=== PATIENT | female | born 1960 | race Caucasian/White ===

== ENCOUNTER 2020-05-16 16:48 | Emergency (ER) | payer SELFPAY ==
[~2020-05-16] VITALS: Ht 177.8 cm; Wt 86.2 kg
[2020-05-16] MEDS ORDERED: GEODON20 MG (17:11)
[2020-05-16] MEDS ORDERED: TRAZODONE HCL50 MG PO (17:11)
[2020-05-16] MEDS ORDERED: CLONAZEPAM2 MG (17:11)
[2020-05-16] MEDS ORDERED: TETANUS/DIPHTHERIA TOX ADULT 0.5 ML SYR IM ONE (17:15)
--- OUTSIDE RECORDS SUMMARY | 2020-05-16 17:52 | XMS REPORT | Clinical Summary ---
Author Author [facility] Organization [facility] Address Unknown Phone Unavailable Care Team Providers Care Administrative Analyst Name Role Phone Asked, No Pcp PCP Unavailable Allergies Comments Active Allergy Reactions Severity Noted Date Face Ava Swelling 04/10/2018 Medications End Date Status Medication Sig Dispensed Refills Start Date Active buPROPion XL (WELLBUTRIN Take 300 mg 0 XL) 300 MG 24 hr tablet by mouth every morning. Active traZODone (DESYREL) 100 Take 200 mg 0 MG tablet by mouth nightly. Active ziprasidone (GEODON) 80 Take 160 mg 0 MG capsule by mouth nightly. Active ibuprofen (ADVIL,MOTRIN) Take 200 mg 0 200 MG tablet by mouth every 6 (six) hours as needed for mild pain. Active Problems Problem Noted Date Epigastric pain 04/10/2018 Social History Date Tobacco Use Types Packs/Day Years Used Current Every Day Smoker Cigarettes 0.5 25 Smokeless Tobacco: Never Used Tobacco Cessation: Ready to Quit: No; Co unseling Given: No Drinks/Week oz/Week Comments Alcohol Use occasionally Yes Sex Assigned at Date Recorded Not on file Industry Job Start Date Occupation Not on file Not on file Not on file Travel End Travel History Travel Start No recent travel history available. Last Filed Vital Signs Not on file Plan of Treatment Health Maintenance Due Date Last Done Comments CERVICAL CANCER SCREENING 01/01/1981 BREAST CANCER SCREENING 01/01/2010 COLONOSCOPY SCREENING 01/01/2010 SHINGLES VACCINES (#1) 01/01/2010 INFLUENZA VACCINE 06/01/2020 Implants Device Identifier Shelf Expiration Date Model / Serial / L ot Implanted Type Area Manufactur er [id number] / / Faith Zelaya [id number] Surgical N/A: N/A GELACIO ROVASIV 15-16.5-18mm Cre - [id number] Implants; E Implanted: 04/11/2018 at [facility] Expanders; HOSPITAL (Quantity not on file) Extenders; Surgical Wires Results Not on fileafter 05/16/2019 Advance Directives For more information, please contact: [phone] 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
--- OUTSIDE RECORDS SUMMARY | 2020-05-16 17:52 | XMS REPORT | Continuity of Care Document ---
Author Author [facility] Organization [facility] Address [address] [place] [address] Phone Unavailable Care Team Providers Care Manager Quality Improvement Name Role Phone Asked, Pcp No PCP Unavailable Payers Payer Name Policy Type Policy Number Effective Date Expiration Date S ource Problems Condition Name Condition Details Condition Category Status Onset Date Resolution Date Last Treatment Date Treating Clinician Comments Source Epigastric pain Epigastric pain Disease Active 2018-04-10 00:00:[address] Allergies, Adverse Reactions, Alerts Allergy Name Allergy Type Status Severity Reaction(s) Onset Date Inacti ve Date Treating Clinician Comments Source lithium DA Active U 2018-07-18 00:00:00 [facility] [place] Propensity to adverse reactions to drug Active Swelling 2018-04-10 00:00:00 [facility] t lithium DA Active U 2011-09-02 00:00:00 [facility] Social History Social Habit Start Date Stop Date Quantity Comments Source History of tobacco use Cigarette Smoker [facility] Sex Assigned At [facility] m[facility] [place] Cigarettes smoked current (pack per day) - Reported 00:00:00 2018-04-12 00:00:[address] Cigarette pack-years 2018-04-12 00:00:00 2018-04-12 00:00:[address] Alcohol intake 2018-04-12 00:00:00 2018-04-12 00:00:00 Current drinker of alcohol (finding) [facility] Alcohol Comment 2018-04-10 00:00:00 2018-04-10 00:00:[address] Smoking Status Start Date Stop Date Source Current every day smoker 2018-04-12 00:00:00 [facility] [place] Medications Ordered Medication Name Filled Medication Name Start Date Stop Da te Current Medication? Ordering Clinician Indication Dosage Frequency Signature (SIG) Comments Components Source buPROPion XL (WELLBUTRIN XL) 300 MG 24 hr tablet 2018-04-11 14:58:09 Yes 300mg QD Take 300 mg by mouth every morning. [facility] traZODone (DESYREL) 100 MG tablet 2018-04-11 14:58:09 Yes 200mg QD Take 200 mg by mouth nightly. [facility]o ziprasidone (GEODON) 80 MG capsule 2018-04-11 14:58:09 Yes 160mg QD Take 160 mg by mouth nightly. [facility] ibuprofen (ADVIL,MOTRIN) 200 MG tablet 2018-04-11 14:58:09 Yes 200mg Q6H Take 200 mg by mouth every 6 (six) hours as needed for mild pain . [facility] Procedures This patient has no known procedures. Plan of Care Planned Activity Planned Date Details Comments Source Future Scheduled Test 2020-06-01 00:00:00 INFLUENZA VACCINE [code = INFLUENZA VACCINE] [facility] Scheduled Test 2010-01-01 00:00:00 BREAST CANCER SCRE ENING [code = BREAST CANCER SCREENING] [facility] Scheduled Test 2010-01-01 00:00:00 COLONOSCOPY SCREEN ING [code = COLONOSCOPY SCREENING] [facility] Scheduled Test 2010-01-01 00:00:00 SHINGLES VACCINES (#1) [code = SHINGLES VACCINES (#1)] [facility] Scheduled Test 1981-01-01 00:00:00 Screening for jack gnant neoplasm of cervix (procedure) [code = 002500090] [facility] t Results This patient has no known results.
--- NOTE | 2020-05-16 18:01 | Diagnostic Imaging Report ---
X-ray 3 views of the index finger. HISTORY: Finger pain after recent fall. COMPARISON: None available. FINDINGS: Bones/joints: No acute fracture or dislocation. Soft tissues: No focal soft tissue abnormality. IMPRESSION: No osseous or soft tissue abnormality. Signed by: Austen Smith MD on 05/16/2020 5:57 PM
--- NOTE | 2020-05-16 18:02 | Diagnostic Imaging Report ---
X-ray 3 views of the wrist. HISTORY: Wrist pain after recent fall. COMPARISON: None available. FINDINGS: Bones/joints: No acute fracture or dislocation. Soft tissues: No focal soft tissue abnormality. IMPRESSION: No osseous or soft tissue abnormality. Signed by: Austen Smith MD on 05/16/2020 5:59 PM
--- NOTE | 2020-05-16 18:04 | Diagnostic Imaging Report ---
X-ray 3 views of the foot. HISTORY: Foot pain after recent fall. COMPARISON: None available. FINDINGS: Bones/joints: No acute fracture or dislocation. Soft tissues: No focal soft tissue abnormality. IMPRESSION: No acute radiographic abnormality. Signed by: Austen Smith MD on 05/16/2020 6:00 PM
--- NOTE | 2020-05-16 18:05 | Emergency Department Note ---
History of Present Illnes History of Present Illness Chief Complaint: General Medicine Complaints History of Present Illness This is a 60 year old female S/P FALL YESTERDAY. TRIP OVER THRESHOLD AND FALL COMING OUT OF [employer]. PT HIT FACE WITH ABRASION ABOVE LIP. RT FOREARM LIGHT BROWN BRUISING. +RADIAL PULSE. TOP OF RT FOOT SWELLING WITH LIGHT BROWN BRUISING. LAC INSIDE UPPER LIP. LEFT INDEX FINGER BRUISING NOTED WELL. Historian: Patient Arrival Mode: Car Equip Tech Required: No Onset (how long ago): day(s) (YESTERDAY) Location: RT FOOT, LEFT INDEX FINGER, RT WRIST, FACE/LIP Quality: PAIN Radiation: Reports non-radiation Severity: moderate Onset quality: sudden Timing of current episode: constant Progression: unchanged Chronicity: new Context: Reports trauma/injury (FALL YESTERDAY, NO LOC); Denies recent illness Relieving factors: none Exacerbating factors: none Associated symptoms: Reports denies other symptoms Treatments prior to arrival: none (ELIZABETH HERRON MD) Past Medical/Family History Physician Review I have reviewed the patient's past medical and family history. Any updates have been documented here. (ELIZABETH HERRON MD) Past Medical History Recent Fever: No Clinical Suspicion of Infectio: No New/Unexplained Change in Ment: No Past Medical History: Cancer, Anxiety, Depression, Other Mental Illness Other Medical History: BIPOLAR WITH PARANOID FEATURES EX SMOKER Past Surgical History: Lumpectomy, Bariatric Surgery Other Surgery: TRAM FLAP BREAST GASTRIC BYPASS 1989 CARPAL TUNNEL RT HAND (ELIZABETH HERRON MD) Social History Physically hurt or threatened: No (ELIZABETH HERRON MD) Review of Systems Review of Systems Constitutional: Reports no symptoms EENTM: Reports as per HPI Cardiovascular: Reports no symptoms Respiratory: Reports no symptoms Gastrointestinal: Reports no symptoms Genitourinary: Reports no symptoms Musculoskeletal: Reports as per HPI Integumentary: Reports no symptoms Neurological: Reports no symptoms Psychological: Reports no symptoms Endocrine: Reports no symptoms Hematological/Lymphatic: Reports no symptoms (ELIZABETH HERRON MD) Physical Exam Related Data Allergies: Coded Allergies: lithium (Verified Allergy, Unknown, 05/16/20) Triage Vital Signs Vital Signs Date Time Temp Pulse Resp B/P (MAP) Pulse Ox O2 Delivery O2 Flow Rate FiO2 05/16/20 17:00 98.0 88 16 131/99 98 Room Air Vital signs reviewed: Yes (ELIZABETH HERRON MD) Physical Exam CONSTITUTIONAL Constitutional: Present well-developed, Present well-nourished HENT HENT: Present normocephalic, Present nose normal, Present other (ABRASIONS TO UPPER LIP EXTERNALLY, SUPERFICIAL LACERATION TO INNER UPPER LIP, NO INVOLVEMENT OF CHARISSA BORDER (ALL INTERNAL)); Absent nasal discharge, Absent nasal congestion HENT L/R: Present left ext ear normal, Present right ext ear normal EYES Eyes: Reports PERRL, Reports conjunctivae normal NECK Neck: Present ROM normal PULMONARY Pulmonary: Present effort normal, Present breath sounds normal CARDIOVASCULAR Cardiovascular: Present regular rhythm, Present heart sounds normal, Present capillary refill normal, Present normal rate GASTROINTESTINAL Abdominal: Present soft, Present nontender, Present bowel sounds normal GENITOURINARY Genitourinary: Present exam deferred SKIN Skin: Present warm, Present dry MUSCULOSKELETAL Musculoskeletal: Present ROM normal, Present other (RIGHT WRIST ECCHYMOSES WITH MILD PAIN WITH ROM, ECCHYMOSIS OF LEFT INDEX FINER DISTALLY WITH VERY SMALL SUBUNGUAL HEMATOMA AND MILD TENDERNESS, ECCHYMOSES OF RIGHT FOOT DORSALLY WITH MODERATE TENDERNESS) NEUROLOGICAL Neurological: Present alert, Present oriented x 3, Present no gross motor or sensory deficits PSYCHOLOGICAL Psychological: Present mood/affect normal, Present judgement normal (ELIZABETH HERRON MD) Results Imaging Imaging Comments DR SORENSON TO F/U XRAYS AND DISPO PT (ELIZABETH HERRON MD) Assessment & Plan Medical Decision Making MDM FALL - CHECK XRAYS RIGHT FOOT AND WRIST, LEFT INDEX FINGER (ELIZABETH HERRON MD) Assessment & Plan Final Impression: (1) Fall (NICOLE SORENSON MD) Last Vital Signs Date Time Temp Pulse Resp B/P (MAP) Pulse Ox O2 Delivery O2 Flow Rate FiO2 05/16/20 17:00 98.0 88 16 131/99 98 Room Air (ELIZABETH HERRON MD) Home Meds Reported Medications Clonazepam (CLONAZEPAM) 2 Mg Tablet 05/16/20 Trazodone Hcl (TRAZODONE HCL) 50 Mg Tablet, 50 MG PO DAILY, #30 TAB 05/16/20 Ziprasidone (GEODON) 20 Mg Cap 05/16/20 Medications in the ED Tetanus/ Diphtheria Toxoids 0.5 ml ONCE ONCE IM ; Start 05/16/20 at 17:15; Stop 05/16/20 at 17:16; Status DC (ELIZABETH HERRON MD) ELIZABETH HERRON MD May 16, 2020 18:05 NICOLE SORENSON MD May 20, 2020 02:49
[2020-05-16] MEDS ORDERED: IBUPROFEN 600 MG TAB PO STA (18:15)
[2020-05-16 18:20] VITALS: BP 122/84
== END 2020-05-16 18:36 | disposition home or self-care (01) ==
LOC: ER 17:50
DX: S00.511A Abrasion of lip, initial encounter (principal); M25.531 Pain in right wrist; M79.671 Pain in right foot; M79.645 Pain in left finger(s); W01.0XXA Fall on same level from slipping, tripping and stumbling without subsequent striking against object, initial encounter; Y93.01 Activity, walking, marching and hiking; Y92.512 Supermarket, store or market as the place of occurrence of the external cause; F31.9 Bipolar disorder, unspecified; F41.9 Anxiety disorder, unspecified; Z98.84 Bariatric surgery status
CPT/HCPCS: 90714; 99284